=== PATIENT | male | born 1960 | race Hispanic/Latino ===

== ENCOUNTER 2022-01-08 02:47 | Emergency (ER) | payer MEDICARE, OTHER ==
[2022-01-08 04:36] LABS: Basophils # (Auto) 0.1 K/mm3 (0.0-0.1); Basophils % (Auto) 0.8 % (0.0-1.8); Eosinophils # (Auto) 0.2 K/mm3 (0.0-0.4); Eosinophils % (Auto) 2.6 % (0.0-4.3); Hematocrit 35.2 % (35.5-45.6); Hemoglobin 12.1 gm/dl (11.8-15.2); Lymphocytes # (Auto) 2.4 K/mm3 (1.2-5.4); Mean Corpuscular HGB Conc 34 % (32-34); Mean Corpuscular Volume 87 fl (84-94); Monocytes # (Auto) 0.9 K/mm3 (0.0-0.8); Monocytes % (Auto) 10.7 % (0.0-7.3); Platelet Count 385 K/mm3 (140-440); Red Blood Count 4.06 M/mm3 (3.65-5.03); Red Cell Distribution Width 12.8 % (13.2-15.2)
[2022-01-08 05:13] LABS: Blood Urea Nitrogen 17 mg/dL (9-20); Hemolysis Index 11
[2022-01-08 05:15] LABS: BUN/Creatinine Ratio 24
[2022-01-08 05:36] LABS: Bacteria,Urine 1+ /HPF (Negative); Mucus,Urine FEW /HPF
[2022-01-08 05:37] LABS: Color,Urine Colorless (Yellow)
[2022-01-08 05:38] LABS: Bilirubin,Urine Moderate (Negative)
[2022-01-08 05:39] LABS: PH,Urine 6.5 (5.0-7.0)
[2022-01-08 05:40] LABS: Blood,Urine Moderate (Negative); WBC,Urine > 182.0 /HPF (0.0-6.0)
[2022-01-08 05:43] LABS: Ictotest,Urine Negative (Negative)
--- NOTE | 2022-01-08 05:45 | Emergency Department Report ---
ED General Adult HPI - General Chief complaint: Urogenital-Male Stated complaint: POSS SPIDER BITE/INFECTION PUI?: No Time Seen by Provider: 01/08/22 04:16 Source: patient Mode of arrival: Ambulatory Limitations: No Limitations - History of Present Illness Initial comments: possble spider bite to L testicle, reports swollen and red -: Gradual, days(s) Location: genitals Radiation: non-radiation Severity scale (0 -10): 4 Quality: aching Consistency: constant Improves with: none Worsens with: none Associated Symptoms: denies: denies other symptoms, confusion, chest pain - Related Data Previous Rx's Medication Instructions Recorded Last Taken Type Doxycycline Monohydrate 100 mg PO BID #20 cap 01/08/22 Unknown Rx [Doxycycline Monohydrate CAP] Allergies Allergy/AdvReac Type Severity Reaction Status Date / Time No Known Allergies Allergy Unverified 02/22/15 13:39 ED Review of Systems ROS: Stated complaint: POSS SPIDER BITE/INFECTION Other details as noted in HPI Constitutional: denies: chills, fever Eyes: denies: eye pain, eye discharge, vision change ENT: denies: ear pain, throat pain Respiratory: denies: cough, shortness of breath, wheezing Cardiovascular: denies: chest pain, palpitations Endocrine: no symptoms reported Gastrointestinal: denies: abdominal pain, nausea, diarrhea Genitourinary: denies: urgency, dysuria Musculoskeletal: denies: back pain, joint swelling, arthralgia Skin: denies: rash, lesions Neurological: denies: headache, weakness, paresthesias Psychiatric: denies: anxiety, depression Hematological/Lymphatic: denies: easy bleeding, easy bruising ED Past Medical Hx - Past Medical History Previous Medical History?: No Hx Hypertension: No - Medications Home Medications: Home Medications Medication Instructions Recorded Confirmed Last Taken Type Doxycycline Monohydrate 100 mg PO BID #20 cap 01/08/22 Unknown Rx [Doxycycline Monohydrate CAP] ED Physical Exam - General Limitations: No Limitations General appearance: alert, in no apparent distress - Head Head exam: Present: atraumatic, normocephalic - Eye Eye exam: Present: normal appearance - ENT ENT exam: Present: mucous membranes moist - Neck Neck exam: Present: normal inspection - Respiratory Respiratory exam: Present: normal lung sounds bilaterally. Absent: respiratory distress - Cardiovascular Cardiovascular Exam: Present: regular rate, normal rhythm. Absent: systolic murmur, diastolic murmur, rubs, gallop - GI/Abdominal GI/Abdominal exam: Present: soft, normal bowel sounds - Rectal Rectal exam: Present: deferred - exam: Present: testicular tenderness, scrotal swelling - Extremities Exam Extremities exam: Present: normal inspection - Back Exam Back exam: Present: normal inspection - Neurological Exam Neurological exam: Present: alert, oriented X3 - Psychiatric Psychiatric exam: Present: normal affect, normal mood - Skin Skin exam: Present: warm, dry, intact, normal color. Absent: rash ED Course Vital Signs 01/08/22 01/08/22 03:00 07:44 Temperature 98.0 F Pulse Rate 87 85 Respiratory 16 18 Rate Blood Pressure 150/78 Blood Pressure 145/80 [Left] O2 Sat by Pulse 97 97 Oximetry ED Medical Decision Making - Lab Data Result diagrams: 01/08/22 04:24 01/08/22 04:24 - Radiology Data Radiology results: report reviewed, image reviewed - Medical Decision Making work up shwoed UTI abx given US was pending , handed over to Dr Rice at 6 am Critical care attestation.: If time is entered above; I have spent that time in minutes in the direct care of this critically ill patient, excluding procedure time. ED Disposition Clinical Impression: Epididymitis, Bacteriuria Disposition: 01 HOME / SELF CARE / HOMELESS Is pt being admited?: No Does the pt Need Aspirin: No Condition: Stable Instructions: Urinary Tract Infection, Adult, Epididymitis, Epididymitis (ED) Prescriptions: Doxycycline Monohydrate [Doxycycline Monohydrate CAP] 100 mg PO BID #20 cap Referrals: RANDELL WILSON MD [Staff Physician] - 3-5 Days PRIMARY CARE, [Primary Care Provider] - 3-5 Days Forms: STI Treatment and Prevention
--- NOTE | 2022-01-08 07:06 | Ultrasound Report ---
ULTRASOUND SCROTUM INDICATION / CLINICAL INFORMATION: swelling. COMPARISON: None available. FINDINGS -- RIGHT TESTIS: Size = 5.8 x 2.5 x 2.9 cm. - Appearance: No significant abnormality. - Cyst or Mass: None. - Color Doppler Flow: No significant abnormality. EPIDIDYMIS: No significant abnormality. HYDROCELE: None. VARICOCELE: None demonstrated. FINDINGS -- LEFT TESTIS: Size = 4 x 3.4 x 3.4 cm. - Appearance: No significant abnormality. - Cyst or Mass: None. - Color Doppler Flow: No significant abnormality. EPIDIDYMIS: Enlarged epididymis with hyperemia. HYDROCELE: Large complex septated left-sided hydrocele. VARICOCELE: None demonstrated. ADDITIONAL FINDINGS: None. IMPRESSION: 1. Findings most consistent with left epididymitis with large complex septated left-sided hydrocele v ersus pyocele. Signer Name: Romeo Champion MD Signed: 01/08/2022 7:01 AM Workstation Name: [id number]
[2022-01-08 07:44] VITALS: BP 145/80
== END 2022-01-08 07:45 | disposition home or self-care (01) ==
LOC: ED 02:47
DX: N45.1 Epididymitis (principal); R82.71 Bacteriuria
CPT/HCPCS: 36415; 80048; 81001; 85025; 93975; 96372; 99284; J0696